=== PATIENT | female | born 1930 | race Caucasian/White ===

== ENCOUNTER 2016-10-24 08:16 | Emergency (ER) | payer MEDICARE, BC ==
--- NOTE | ~2016-10-24 | CT71 ---
[facility] A Service of [facility] RADIOLOGY TEXT RESULTS PATIENT: LEANDRO MORA LOCATION: SED : 28 UNIT #: [id number] AGE: [address]: Galen Queen MD SEX: F ORDER DR: [id number] [place] [id number] E MR#: [id number] Acc #: [id number] NAME: LEANDRO MORA : 1930 SEX: F STUDY DATE/TIME: 10/24/2016 9:50 UNIT: SED ROOM: STUDY DESCRIPTION: CT Head Wo Contrast Attending Physician: Galen Queen M.D. Ordering Physician: Galen Queen M.D. Primary Care Physician: Servando Guerra M.D. MEDICAL IMAGING REPORT This report is preliminary unless electronic signature is present. EXAM CT of the head without contrast INDICATIONS Headache and dizziness as well as dementia and confusion. Patient tripped over her walker this morning and hit her face and head. TECHNIQUE Axial CT images were obtained from the vertex of the skull through the skull base no intravenous contrast was administered. This CT exam was performed with one or more of the following radiation dose reduction techniques: automatic control, adjustment of mA and/or kV according to patient size, and iterative reconstruction. FINDINGS No acute intracranial hemorrhage is identified. There is diffuse cerebral atrophy with compensatory ventricular dilatation which is in keeping with the age of 85. 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 Patient is noted to have some mild mucosal thickening within the ethmoid sinuses and the right maxillary sinus with partial opacification seen within the left mastoid air cells. No calvarial fracture is seen. I do not see any focal soft tissue abnormalities. IMPRESSION 1. No acute intracranial hemorrhage identified. 2. 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 Natalie Avalos M.D. THIS IS AN ELECTRONICALLY VERIFIED REPORT Natalie Avalos M.D. at 10/27/2016 1:00 PM AFF/rnr TD: 10/25/2016 03:39 JOB #: [id number] MEDICAL IMAGING REPORT Page 1 of 1
[~2016-10-24 08:16] MED LIST: COREG6.25 MG; DOCUSATE SODIU100 MG PO; LEVADOPA; LEXAPRO20 MG; SEROQUEL100 MG PO; XANAX0.5 M1
== END 2016-10-24 10:56 | disposition home or self-care (01) ==
LOC: SED 08:16
DX: F41.9 Anxiety disorder, unspecified (principal); G20 Parkinson's disease; F02.80 Dementia in other diseases classified elsewhere, unspecified severity, without behavioral disturbance, psychotic disturbance, mood disturbance, and anxiety; W01.0XXA Fall on same level from slipping, tripping and stumbling without subsequent striking against object, initial encounter; Y92.129 Unspecified place in nursing home as the place of occurrence of the external cause
CPT/HCPCS: 70450; 99284